=== PATIENT | female | born 1970 | race Caucasian/White ===

== ENCOUNTER 2024-12-21 09:43 | Inpatient (IN) | payer MEDICAID ==
[~2024-12-21] VITALS: Ht 162.6 cm; Wt 170.0 kg
--- NOTE | 2024-12-21 10:04 | ECG ---
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
[2024-12-21 10:21] LABS: Hematocrit 42.4 % (36.0-46.0); Hemoglobin 14.5 g/dL (12.2-16.2); Mean Corpuscular Hemoglobin 33.6 pg (28.0-32.0); Mean Corpuscular Volume 98.6 fL (80.0-100.0); Nucleated Red Blood Cells % 0.2 %
--- NOTE | 2024-12-21 10:23 | DVH ---
CLINICAL HISTORY: CHEST PAIN TECHNIQUE: 2 view of the chest was obtained. WID: COMPARISON: XR CHEST 2 VIEW on DOS: 06/17/24 FINDINGS: Lungs: clear Cardiomediastinal silhouette: normal in size Bones: No acute osseous abnormality. Imaged Upper Abdomen: unremarkable. IMPRESSION: NO ACUTE CARDIOPULMONARY PROCESS.
[2024-12-21 10:31] LABS: Anion Gap 6 (5-15); Carbon Dioxide 30 mmol/L (20-31); Chloride 106 mmol/L (98-107); Potassium 4.1 mmol/L (3.5-5.1); Sodium 142 mmol/L (136-145)
[2024-12-21 10:32] LABS: Calcium 8.9 mg/dL (8.7-10.4)
[2024-12-21 10:37] LABS: BUN/Creatinine Ratio 13.2 (10.0-20.0); Blood Urea Nitrogen 9 mg/dL (9-23); Glucose 93 mg/dL (74-106)
--- NOTE | 2024-12-21 10:40 | ED.PDOC ---
HPI Comments This is a 54 year-old female who presents to the ED with a chief complaint of L sided chest pain S/P fall X5 days ago. Patient states she was at home when she fell backwards and hit her back/ L flank. Patient reports the pain radiates to the L side of her chest. Patient states chest pain is constant, associated with a "stabbing" sensation, and exacerbated with deep breaths or movement. Patient additionally states she uses MJ to help with the pain. Patient has no further c omplaints at this time and otherwise denies further associated symptoms of palpitations, dizziness, weakness, headache, SOB, or fever. Chief Complaint: Chest Pain Time Seen by MD: 10:14 Primary Care Provider: PAM Hamilton Notes: Medications, Allergies Allergies: Coded Allergies: NO KNOWN ALLERGIES (Unverified , 11/21/14) Information Source: Patient Mode of Arrival: Ambulatory Severity: Moderate Timing: Days Duration: Since onset Prehospital treatment: None Location: Chest (L) Radiation: No Radiation Quality: Stabbing Onset: At Rest, With Light Exertion, With Heavy Exertion Associated Signs and Symptoms: Other (Chest Pain ) Past Medical History PAST MEDICAL HISTORY: HTN Surgical History: Appendectomy CERTIFIED HISTOLOGIC TECHNICIAN History: No Pertinent CERTIFIED HISTOLOGIC TECHNICIAN History Family History Family History: Unknown Social History Smoker: Cigarettes Alcohol: Occasionally Drugs: Marijuana Lives In: Home Constitutional: denies: chills, diaphoresis, fatigue, fever, malaise, sweats, weakness, others EENTM: denies: blurred vision, double vision, ear bleeding, ear discharge, ear drainage, ear pain, ear ringing, eye pain, eye redness, hearing loss, mouth pain, mouth swelling, nasal discharge, nose bleeding, nose congestion, nose pain, photophobia, tearing, throat pain, throat swelling, voice changes, others Respiratory: denies: cough, hemoptysis, orthopnea, SOB at rest, shortness of breath, SOB with excertion, stridor, wheezing, others Cardiovascular: reports: chest pain; denies: dizzy spells, diaphoresis, Dyspnea on exertion, edema, irregular heart beat, left arm pain, lightheadedness, palpitations, PND, syncope, others Gastrointestinal: denies: abdomen distended, abdominal pain, blood streaked bowels, constipated, diarrhea, dysphagia, difficulty swallowing, hematemesis, melena, nausea, poor appetite, poor fluid intake, rectal bleeding, rectal pain, vomiting, others Genitourinary: denies: abnormal vagina bleeding, burning, dyspareunia, dysuria, flank pain, frequency, hematuria, incontinence, pain, , vagina discharge, urgency, others Neurological: denies: dizziness, fainting, headache, left sided numbness, left sided weakness, numbness, paresthesia, pre-existing deficit, right sided numbness, right sided weakness, seizure, speech problems, tingling, tremors, weakness, others Musculoskeletal: denies: back pain, gout, joint pain, joint swelling, muscle pain, muscle stiffness, neck pain, others Integumetry: denies: bruises, change in color, change in hair/nails, dryness, laceration, lesions, lumps, rash, wounds, others Allergic/Immunocompromised: denies: Difficulty Healing, Frequent Infections, Hives, Itching, others Hematologic/Lymphatic: denies: anemia, blood clots, easy bleeding, easy bruising, swollen glands, others Endocrine: denies: excessive hunger, excessive sweating, excessive thirst, excessive urination, flushing, intolerance to cold, intolerance to heat, unexplained weight gain, unexplained weight loss, others Psychiatric: denies: anxiety, bipolar disorder, depression, hopeless, panic disorder, schizophrenia, sleepless, suicidal, others All Other Systems: Reviewed and Negative Physical Exam General Appearance: Moderate Distress HEENT: Normal ENT Inspection, Pharynx Normal, TMs Normal Neck: Full Range of Motion, Non-Tender, Normal, Normal Inspection Respiratory: Chest Non-Tender, Lungs Clear, No Accessory Muscle Use, No Respiratory Distress, Normal Breath Sounds Cardiovascular: No Edema, No JVD, No Murmur, No Gallop, Normal Peripheral Pulses, Regular Rate/Rhythm Breast Exam: Deferred Gastrointestinal: No Organomegaly, Non Tender, No Pulsatile Mass, Normal Bowel Sounds, Soft Genitalia: Deferred Pelvic: Deferred Rectal: Deferred Extremities: No calf tenderness, Normal capillary refill, Normal inspection, Normal range of motion, Non-tender, No pedal edema Musculoskeletal : Apperance: Normal Neurologic: Alert, manager in training II-XII nml as Tested, No Motor Deficits, Normal Affect, Normal Mood, No Sensory Deficits Cerebellar Function: Normal Reflexes: Normal Skin: Dry, Normal Color, Warm Peripheral Pulses: 3+ Radial (R), 3+ Radial (L) Lymphatic: No Adenopathy EKG EKG : Pulse Rate (adult): 63 [place]: Normal Cardiac Rhythm: NSR Block: None Hypertrophy: None ST: Normal Was a procedure done? Was a procedure done?: No CP Differential Dx Differential Diagnosis: A-fib, A-Flutter, Angina, Anxiety / Panic Attack, At rial Dysrhythmia, Electrolyte Disorder, VT, Sinus Tachycardia Differential Diagnosis: HTN Essential X-Ray, Labs, Meds, VS Vital Signs Date Time Temp Pulse Resp B/P (MAP) Pulse Ox O2 Delivery O2 Flow Rate FiO2 12/21/24 10:42 63 12/21/24 10:03 63 12/21/24 09:48 98.0 79 18 166/98 97 98.0 Lab Test 12/21/24 10:07 Range/Units White Blood Count 5.2 4.4-10.8 10^3/uL Red Blood Count 4.30 4.0-5.20 10^6/uL Hemoglobin 14.5 12.2-16.2 g/dL Hematocrit 42.4 36.0-46.0 % Mean Corpuscular Volume 98.6 80.0-100.0 fL Mean Corpuscular Hemoglobin 33.6 H 28.0-32.0 pg Mean Corpuscular Hemoglobin Concent 34.1 32.0-36.0 g/dL Red Cell Distribution Width 13.6 11.8-14.3 % Platelet Count 235 140-450 10^3/uL Mean Platelet Volume 7.9 6.9-10.8 fL Neutrophils (%) (Auto) 63.7 37.0-80.0 % Lymphocytes (%) (Auto) 28.8 10.0-50.0 % Monocytes (%) (Auto) 5.1 0.0-12.0 % Eosinophils (%) (Auto) 1.7 0.0-7.0 % Basophils (%) (Auto) 0.7 0.0-2.0 % Neutrophils # (Auto) 3.3 1.6-8.6 10 ^3/uL Lymphocytes # (Auto) 1.5 0.4-5.4 10 ^3/uL Monocytes # (Auto) 0.3 0-1.3 10 ^3/uL Eosinophils # (Auto) 0.1 0-0.8 10 ^3/uL Basophils # (Auto) 0 0-0.2 10 ^3/uL Nucleated Red Blood Cells 0.2 % Sodium Level 142 136-145 mmol/L Potassium Level 4.1 3.5-5.1 mmol/L Chloride Level 106 98-107 mmol/L Carbon Dioxide Level 30 20-31 mmol/L Anion Gap 6 5-15 Blood Urea Nitrogen 9 9-23 mg/dL Creatinine 0.68 0.550-1.02 mg/dL Glomerular Filtration Rate Calc 103 >90 mL/min BUN/Creatinine Ratio 13.2 10.0-20.0 Serum Glucose 93 74-106 mg/dL Calcium Level 8.9 8.7-10.4 mg/dL Troponin I High Sensitivity 3 L </=34 ng/L [place] [id number] Ph: [phone] DIAGNOSTIC IMAGING Diagnostic Imaging Report : [id number] Signed PATIENT: KASANDRA BRYANT ACCT: [id number] UNIT: [id number] : 1970 LOC: ER ROOM / BED: / AGE / SEX: 54 / F ADM STATUS: REG ER SERVICE [id number] ORDERING PHYSICIAN: ELIECER SPENCER MD PROCEDURE(s): CXR2 - CHEST TWO VIEWS ROUTINE REASON: CHEST PAIN ORDER NUMBER(s): [id number], ACCESSION NUMBER(s): [id number] CLINICAL HISTORY: CHEST PAIN TECHNIQUE: 2 view of the chest was obtained. WID: COMPARISON: XR CHEST 2 VIEW on DOS: 06/17/24 FINDINGS: Lungs: clear Cardiomediastinal silhouette: normal in size Bones: No acute osseous abnormality. Imaged Upper Abdomen: unremarkable. IMPRESSION: NO ACUTE CARDIOPULMONARY PROCESS. Patient alert. Came in because of chest pain. Vitals stable. Answering questions. Chest x-ray reviewed does not show any acute changes. EKG reviewed does not show any acute changes. Continues to have chest pain. Was given aspirin. Was given nitro. Explained to the patient. Continue monitoring. Images Reviewed?: Images reviewed and evaluated by me Time of 1ST Reevaluation: 11:25 Reevaluation 1ST: Unchanged Patient Education/Counseling: Diagnosis, Treatment Family Education/Counseling: No Family Present SEPSIS Sepsis Screen Date sepsis recognized/suspect: Dec 21, 2024 Time Sepsis recognized/suspect: 0950 Recent Procedure: No On Antibiotic Therapy: No Respiratory Rate >20: No Heart Rate >90: No Temp<36 C (96.8 F) or >38.3 C: No SBP <90 or MAP <65 mmHG: No New Acute Mental Status Change: No Is the patient on CPAP, BIPAP,: No Physician Orders Troponin-I Hs (12/21/24 10:47) Troponin-I Hs (12/21/24 12:47) Electrocardigram (12/21/24 10:47) Electrocardigram (12/21/24 12:47) Chest Two Views Routine (12/21/24 09:47) Vital Signs Date Time Temp Pulse Resp B/P (MAP) Pulse Ox O2 Delivery O2 Flow Rate FiO2 12/21/24 10:42 63 12/21/24 10:03 63 12/21/24 09:48 98.0 79 18 166/98 97 98.0 Laboratory Tests Test 12/21/24 10:07 White Blood Count 5.2 10^3/uL (4.4-10.8) Departure 1 Departure Time of Disposition: 11:26 Impression: Primary Impression: Chest pain of unknown etiology Disposition: ADMITTED INPATIENT Admit to: Med Surg Condition: Guarded Critical Care Note Critical Care Time?: No Stability Stability form required: No Heart Score Heart Score: Heart Score Response (Comments) Value History Moderate Suspicious 1 EKG Normal 0 Age 45-64 1 Risk Factors 1 or 2 risk factors 1 Troponin Normal limit 0 Total 3 I personally scribed for ELIECER SPENCER MD ([email or web address]) on 12/21/24 at 10:40. Electronically submitted by Kay Cid ([email or web address]). I personally scribed for ELIECER SPENCER MD ([email or web address]) on 12/21/24 at 10:42. Electronically submitted by Kay Cid ([email or web address]). I personally scribed for ELIECER SPENCER MD ([email or web address]) on 12/21/24 at 10:42. Electronically submitted by Kay Cid ([email or web address]). ELIECER SPENCER MD Dec 21, 2024 10:40
[2024-12-21] MEDS: NITROGLYCERIN 0.4 MG SL TAB SL ONE (11:34)
[2024-12-21] MEDS ORDERED: NITROGLYCERIN 0.4 MG SL TAB SL PRN (12:30)
[2024-12-21 13:54] VITALS: PULSE 88; RESP 18; O2SAT 97
[2024-12-21] MEDS ORDERED: hydrALAZINE HCL 20 MG/ML VL IV PRN (14:45)
[2024-12-21] MEDS ORDERED: ONDANSETRON HCL 4 MG/2 ML VIAL IV PRN (14:45)
--- NOTE | 2024-12-21 14:46 | DVHHP2 ---
History of Present Illness Reason for Visit: Chest pain History of Present Illness 54-year-old female presents for evaluation of chest pain. Patient reports a one day history of left-sided sharp chest pain with shortness for breath with deep inspiration. No cough or fever. No other acute complaints. Past Medical History Hypertension Past Surgical History Appendectomy Family History Noncontributory Smoke: <1 pack per day ALCOHOL: occassional Drugs: Marijuana Lives: with Family Review of Systems Review of Systems Review of systems are currently negative otherwise addressed in HPI. Allergies: Coded Allergies: NO KNOWN ALLERGIES (Unverified , 11/21/14) Medications Current Medications Medications Dose Ordered Sig/Jayant Route Start Time Stop Time Status Last Admin Dose Admin Nitroglycerin 0.4 mg Q5MINP PRN SL 12/21/24 12:30 Morphine Sulfate 2 mg Q30M PRN IV 12/21/24 12:30 Exam Vital Signs Vital Signs Date Time Temp Pulse Resp B/P (MAP) Pulse Ox O2 Delivery O2 Flow Rate FiO2 12/21/24 13:57 97 Room Air* 0 21 12/21/24 13:54 88 18 12/21/24 11:34 188/95 12/21/24 09:48 98.0 98.0 Exam Gen: 54-year-old female in mild distress Skin: Warm, dry, normal color and texture, no rash. HEENT: Normocephalic atraumatic, mucous membranes moist and pink. Neck: Cervical and supraclavicular nodes normal without enlargement, trachea is midline, thyroid gland is normal without masses. Pulmonary: Clear to auscultation and percussion bilaterally. Cardiac: Regular rate and rhythm. No murmur Abdomen: Soft, nontender, nondistended, bowel sounds present all 4 quadrants, no guarding, no rigidity, no organomegaly. Extremities: No cyanosis, clubbing, no edema Neuro: Cranial nerves II through XII grossly intact, normal affect and speech, no focal motor deficits. Labs/Xrays ORDERING PHYSICIAN: ELIECER SPENCER MD PROCEDURE(s): CXR2 - CHEST TWO VIEWS ROUTINE REASON: CHEST PAIN ORDER NUMBER(s): [id number], ACCESSION NUMBER(s): [id number] CLINICAL HISTORY: CHEST PAIN TECHNIQUE: 2 view of the chest was obtained. WID: COMPARISON: XR CHEST 2 VIEW on DOS: 06/17/24 FINDINGS: Lungs: clear Cardiomediastinal silhouette: normal in size Bones: No acute osseous abnormality. Imaged Upper Abdomen: unremarkable. IMPRESSION: NO ACUTE CARDIOPULMONARY PROCESS. Labs Test 12/21/24 11:23 12/21/24 10:07 Range/Units Troponin I High Sensitivity < 3 L </=34 ng/L White Blood Count 5.2 4.4-10.8 10^3/uL Red Blood Count 4.30 4.0-5.20 10^6/uL Hemoglobin 14.5 12.2-16.2 g/dL Hematocrit 42.4 36.0-46.0 % Mean Corpuscular Volume 98.6 80.0-100.0 fL Mean Corpuscular Hemoglobin 33.6 H 28.0-32.0 pg Mean Corpuscular Hemoglobin Concent 34.1 32.0-36.0 g/dL Red Cell Distribution Width 13.6 11.8-14.3 % Platelet Count 235 140-450 10^3/uL Mean Platelet Volume 7.9 6.9-10.8 fL Neutrophils (%) (Auto) 63.7 37.0-80.0 % Lymphocytes (%) (Auto) 28.8 10.0-50.0 % Monocytes (%) (Auto) 5.1 0.0-12.0 % Eosinophils (%) (Auto) 1.7 0.0-7.0 % Basophils (%) (Auto) 0.7 0.0-2.0 % Neutrophils # (Auto) 3.3 1.6-8.6 10 ^3/uL Lymphocytes # (Auto) 1.5 0.4-5.4 10 ^3/uL Monocytes # (Auto) 0.3 0-1.3 10 ^3/uL Eosinophils # (Auto) 0.1 0-0.8 10 ^3/uL Basophils # (Auto) 0 0-0.2 10 ^3/uL Nucleated Red Blood Cells 0.2 % Sodium Level 142 136-145 mmol/L Potassium Level 4.1 3.5-5.1 mmol/L Chloride Level 106 98-107 mmol/L Carbon Dioxide Level 30 20-31 mmol/L Anion Gap 6 5-15 Blood Urea Nitrogen 9 9-23 mg/dL Creatinine 0.68 0.550-1.02 mg/dL Glomerular Filtration Rate Calc 103 >90 mL/min BUN/Creatinine Ratio 13.2 10.0-20.0 Serum Glucose 93 74-106 mg/dL Calcium Level 8.9 8.7-10.4 mg/dL SEPSIS Sepsis Screen Date sepsis recognized/suspect: Dec 21, 2024 Time Sepsis recognized/suspect: 1356 Recent Procedure: No On Antibiotic Therapy: No Respiratory Rate >20: No Heart Rate >90: No Temp<36 C (96.8 F) or >38.3 C: No SBP <90 or MAP <65 mmHG: No New Acute Mental Status Change: No Is the patient on CPAP, BIPAP,: No Physician Orders Electrocardigram (12/21/24 10:47) Electrocardigram (12/21/24 12:47) Chest Two Views Routine (12/21/24 09:47) Admit (12/21/24 12:25) Nitroglycerin Sublingual (Ntrostat Subli (12/21/24 12:30) Morphine Sulfate Injection (12/21/24 12:30) Stat Ekg For Chest Pain (12/21/24 12:25) Notify Md Of Changes From Base (12/21/24 12:25) Braker Passenger Train For 24 Hours (12/21/24 12:25) Emergency Dysrhythmia Protocol (12/21/24 12:25) Rhythm Strips Once Every Shift (12/21/24 12:25) Oxygen By Nasal Cannula (12/21/24 12:25) Vital Signs Date Time Temp Pulse Resp B/P (MAP) Pulse Ox O2 Delivery O2 Flow Rate FiO2 12/21/24 13:57 97 Room Air* 0 21 12/21/24 13:54 88 18 97 Room Air* 0 21 12/21/24 11:34 188/95 12/21/24 11:30 77 12/21/24 10:42 63 12/21/24 10:03 63 12/21/24 09:48 98.0 79 18 166/98 97 98.0 Laboratory Tests Test 12/21/24 10:07 White Blood Count 5.2 10^3/uL (4.4-10.8) Medications Medications Dose Ordered Sig/Jayant Route Start Time Stop Time Status Last Admin Dose Admin Aspirin 325 mg ONCE ONCE PO 12/21/24 11:30 12/21/24 11:31 DC 12/21/24 11:39 325 MG Nitroglycerin 0.4 mg ONCE ONCE SL 12/21/24 11:30 12/21/24 11:31 DC 12/21/24 11:34 0.4 MG Assessment/Plan Assessment/Plan Assessment Chest pain rule out ACS Accelerated hypertension Plan Admit the patient to telemetry to the hospitalist ACS protocol Echocardiogram pending Resume home medications Continue treatment per orders. Plan discussed with: Patient My Orders Orders - RON HENRIQUEZ Procedure Category Date Status Time Admit ADMIT 12/21/24 Transmitted 12:25 Nitroglycerin PHA 12/21/24 In Process Sublingual (Ntrostat 12:30 Morphine Sulfate PHA 12/21/24 In Process Injection 12:30 Stat Ekg For Chest FILEMON 12/21/24 In Process Pain 12:25 Notify Md Of Changes FILEMON 12/21/24 In Process From Base 12:25 Braker Passenger Train For FILEMON 12/21/24 In Process 24 Hours 12:25 Emergency Dysrhythmia FLIEMON 12/21/24 In Process Protocol 12:25 Rhythm Strips Once FILEMON 12/21/24 In Process Every Shift 12:25 Oxygen By Nasal RT 12/21/24 Transmitted Cannula 12:25 Date of Service: Dec 21, 2024 Billing Provider: RON HENRIQUEZ Common Visit Codes: [id number] INP/OBS CARE (HIGH) RON HENRIQUEZ Dec 21, 2024 14:46
[2024-12-21 14:57] LABS: Triglycerides 83 mg/dL (< 150)
[2024-12-21 14:59] LABS: Cholesterol 175 mg/dL (< 200)
[2024-12-21 15:02] LABS: HDL Cholesterol 79 mg/dL (40-59)
[2024-12-21 16:26] VITALS: BP 151/99; PULSE 67; RESP 20; TEMP 97.6; O2SAT 95
[2024-12-21 16:40] VITALS: BP 151/99; PULSE 67; RESP 20; TEMP 97.6; O2SAT 95
[2024-12-21] MEDS: MORPHINE SULFATE INJ 2 MG/ml SYRG IV ONE (19:03)
--- NOTE | 2024-12-21 19:18 | ECG ---
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
[2024-12-21] MEDS: ACETAMINOPHEN 325 MG TAB PO PRN (20:30)
[2024-12-21 21:00] VITALS: BP 140/96; PULSE 76; RESP 18; TEMP 98.2; O2SAT 95
[2024-12-21] MEDS: ATORVASTATIN 20 MG TAB PO SCH (21:18)
[2024-12-21] MEDS: HYDROcodone-ACET 10/325MG TAB PO PRN (21:18)
[2024-12-21] MEDS: MORPHINE SULFATE INJ 2 MG/ml SYRG IV PRN (23:11)
[2024-12-22] VITALS (11 sets, daily range): BP systolic 124–144; BP diastolic 79–92; PULSE 64–70; RESP 16–20; TEMP 97.9–98.9; O2SAT 91–98
[2024-12-22 06:31] LABS: Anion Gap 6 (5-15); Carbon Dioxide 28 mmol/L (20-31); Potassium 3.8 mmol/L (3.5-5.1); Sodium 143 mmol/L (136-145)
[2024-12-22 06:37] LABS: BUN/Creatinine Ratio 19.0 (10.0-20.0); Blood Urea Nitrogen 11 mg/dL (9-23); Glucose 95 mg/dL (74-106)
[2024-12-22 06:46] LABS: Calcium 8.6 mg/dL (8.7-10.4); Chloride 109 mmol/L (98-107)
[2024-12-22 09:23] LABS: Hematocrit 38.1 % (36.0-46.0); Hemoglobin 12.9 g/dL (12.2-16.2); Mean Corpuscular Hemoglobin 33.6 pg (28.0-32.0); Mean Corpuscular Volume 98.8 fL (80.0-100.0); Nucleated Red Blood Cells % 0.1 %
[2024-12-22] MEDS: LOSARTAN POTASSIUM 25 MG TAB PO SCH (09:27)
[2024-12-22 09:36] LABS: Alanine Aminotransferase 13 U/L (7-40); Albumin 3.8 g/dL (3.2-4.8); Alkaline Phosphatase 63 U/L (46-116); Anion Gap 8 (5-15); BUN/Creatinine Ratio 17.7 (10.0-20.0); Bilirubin, Total 0.6 mg/dL (0.2-1.0); Blood Urea Nitrogen 11 mg/dL (9-23); Carbon Dioxide 26 mmol/L (20-31); Glucose 94 mg/dL (74-106); Potassium 3.9 mmol/L (3.5-5.1); Sodium 144 mmol/L (136-145); Total Protein 6.0 g/dL (5.7-8.2)
[2024-12-22 09:41] LABS: Calcium 8.5 mg/dL (8.7-10.4); Chloride 110 mmol/L (98-107)
[2024-12-22 10:06] LABS: Magnesium 2.0 mg/dL (1.6-2.6)
[2024-12-22 10:18] LABS: Lipase 35.0 U/L (12-53)
--- NOTE | 2024-12-22 13:00 | DVH ---
CLINICAL INDICATION: trauma, temderness TECHNIQUE: 7 radiographic views of the chest x-ray and bilateral ribs were obtained. Comparison: None FINDINGS/IMPRESSION: There is no pneumothorax seen on the right or left. No pleural effusions. Minimally displaced right 7th and 8th ribs.
[2024-12-22] MEDS: PANTOPRAZOLE 40 MG TAB PO ONE (13:05)
[2024-12-22] MEDS: NICOTINE 14 MG/24HR TOPICAL PATCH TD ONE (13:08)
--- NOTE | 2024-12-22 13:25 | DVHSR ---
APPROVED REPORT EXAM: LIMITED Two-dimensional and M-mode echocardiogram with Doppler and color Doppler. Blood Pressure: 129/79 mmHg INDICATION Chest Pain RISK FACTORS Height: 5' 4", Weight: 374 DIMENSIONS LVDd4.8 (3.8-5.7cm)LA (2D)4.0 (1.9-4.0cm)Aortic Root3.2 (2.0-3.7cm) LVDs3.3 (2.5-4.0cm)LA (MM) (1.9-4.0cm)Aortic Cusp Exc1.8 (1.5-2.0cm) EF (%) 60.0 (55-70%)Rt. Atrium4.0 (1.9-4.0cm)Asc. Aorta cm IVSd1.1 (0.7-1.1cm)RV (D) (1.8-2.4cm) PWd1.1 (0.7-1.1cm) Mitral Valve MitralMitral Stenosis E wave1.10m/sMV Mean GR.mmHg A wave0.90m/sMV Peak GR.mmHg E/A ratio1.22D MVAcm2 Aortic Valve Aortic ValveAortic Stenosis V11.10m/Fernie Mean GR.6mmHg V21.80m/Fernie Peak GR.13mmHg LVOT Diameter2.2 (1.8-2.4cm)Doppler AVA2.32cm2 Other Information Quality : Technically LimitedRhythm : Technically limited study due to patient states ribs hurt when touched. Conclusion lvef 60% normal rv function normal atria no severe valve abnormaliteis noted
[2024-12-22] MEDS ORDERED: IPRATROPIUM BROM 0.5 MG/2.5ML INH SOL NEB SCH (14:00)
[2024-12-22] MEDS: LIDOCAINE 5% TOPICAL PATCH TOP ONE (14:23)
--- NOTE | 2024-12-22 14:37 | DVHPNRES ---
Progress Note Date Seen: Dec 22, 2024 Resident Creating Document: VON RODRIGUEZ RESIDENT Medical Necessity Reason Pt with a Central, PICC or Fol: No Subjective Review of Systems This is a 54-year-old female with past medical history of hypertension, COPD, asthma, diverticulitis, presented to the ER with chief complain of chest pain. Patient reportedly hit the right side of her chest on a kitchen counter 3 weeks back, the pain migrated to the left side of her chest, urging her visit to the ER. The pain is described as stabbing, 10/10, increases with inspiration. She denies palpitations, shortness of breath. She complains of associated headache. She also complained of increased phlegm, take yellow-green in color. No changes in cough, denies fever, chills, nausea, vomiting, diarrhea, constipation. PMHx: Hypertension, COPD, asthma, diverticulitis PSHx: Appendectomy Social history: <1 pack per day for 30 years, occasional alcohol use, occasional marijuana use (last use Monday). She lives in house alone, full code, next to kin is son Home medication: Amlodipine, ibuprofen, fluticasone, varenicline Allergic history: No known allergies ROS: Constitutional: Denies weight loss, fever and chills. HEENT: Denies changes in vision and hearing. Respiratory: Denies shortness of breath and cough Cardiovascular: Chest pain. Denies palpitation, shortness of breaths GI: Denies abdominal pain, nausea, vomiting and diarrhea. : Denies dysuria and urinary frequency. Musculoskeletal: Denies myalgias and joint pain Skin: Denies rash and pruritus. Neurological: Denies dizziness, headache, vision or hearing problems 12/22/2024: Patient was examined at bedside today. No new complaints. Objective vital signs Vital Sign Date Time Temp Pulse Resp B/P (MAP) Pulse Ox O2 Delivery O2 Flow Rate FiO2 12/22/24 13:14 98.3 69 20 124/80 (95) 93 98.3 12/22/24 11:46 0.0 21 12/22/24 08:00 Room Air* medications Current Medications Medications Dose Ordered Sig/Jayant Route Start Time Stop Time Status Last Admin Dose Admin Nitroglycerin 0.4 mg Q5MINP PRN SL 12/21/24 12:30 Morphine Sulfate 2 mg Q30M PRN IV 12/21/24 12:30 Losartan Potassium 25 mg DAILY PO 12/22/24 10:00 12/22/24 09:27 25 MG Aspirin 81 mg DAILY PO 12/22/24 10:00 12/22/24 09:27 81 MG Atorvastatin Calcium 10 mg HS PO 12/21/24 22:00 12/21/24 21:18 10 MG Ondansetron HCl 4 mg Q4HP PRN IV 12/21/24 14:45 Acetaminophen 650 mg Q6HP PRN PO 12/21/24 14:45 12/22/24 05:56 650 MG Hydralazine HCl 10 mg Q6HP PRN IV 12/21/24 14:45 Acetaminophen/ Hydrocodone Bitart 1 tab Q6HP PRN PO 12/21/24 20:45 12/22/24 11:35 1 TAB Morphine Sulfate 2 mg Q4HPRN PRN IV 12/21/24 20:45 12/21/24 23:11 2 MG Albuterol 1.25 mg Q4HPRN PRN NEB 12/22/24 11:45 Nicotine 1 patch DAILY TD 12/23/24 10:00 Pantoprazole Sodium 40 mg DAILY@0600 PO 12/23/24 06:00 Ipratropium [place] 0.5 mg Q4HPRN PRN NEB 12/22/24 18:00 Lidocaine 1 patch DAILY TOP 12/23/24 10:00 Examination General: Patient alert and oriented in person, place and time. Patient following commands. HEENT: Normocephalic, atraumatic, moist mucous membranes Respiratory/pulmonary: Clear lungs bilaterally, vesicular murmurs present in almost all lung julian, no associated crackles or wheezes. Cardiovascular: Tenderness in the left side of the chest, expiratory wheeze in the left lower lung julian Abdomen: Abdomen nondistended, there is no pain to palpation in any of the abdominal quadrants, no palpable masses. Extremities: There is no peripheral edema present at the lower extremities. Peripheral Pulses: 3+ Radial (R). 3+ Radial (L). 3+ Dorsalis pedis (R). 3+ Dorsalis pedis(L) Skin: No rashes or pruritus, there is no sacral edema present at this time. Neurological: Intact cranial nerves with no focal neurologic deficits laboratory and microbiology Laboratory Tests 12/22/24 05:20 Test 10/26/25 05:20 Range/Units Serum Glucose 94 74-106 mg/dL Problem List/Assessment/Plan Problem List/Assessment/Plan Chest pain, rule out ACS Musculoskeletal chest pain, likely Displaced right 7th, 8th rib Troponins WNL, EKG show sinus rhythm Echocardiogram shows LVEF 60%, normal RV function Continuous monitoring on telemetry for life-threatening arrhythmias Supportive management with pain medications, lidocaine patch and hot pack Hypertensive urgency, resolving Continue losartan COPD, without exacerbation Med neb treatment provided Ordered COVID, influenza serologies Nicotine dependence Counseled on bedside for more than has been units for nicotine cessation Offered nicotine patch Morbid obesity Counseled on lifestyle changes DIET: Cardiac DVT PROPHYLAXIS: Ambulating, SCD GI PROPHYLAXIS: Protonix CODE STATUS: Goals of care discussed with patient at bedside for more than 15 minutes. Full code DISPOSITION: Telemetry Patient's status and plan discussed with the patient. Case discussed with Dr. Wall Plan discussed with: Patient My Orders My Orders Orders - VON RODRIGUEZ Procedure Category Date Status Time Drug Screen LAB 12/22/24 Logged 08:34 Test, Urine LAB 12/22/24 Logged 08:34 Urinalysis LAB 12/22/24 Logged 08:34 Rapid Influenza A&B LAB 12/22/24 Logged 11:32 Covid19 Antigen [place] LAB 12/22/24 Logged Albuterol Medneb PHA 12/22/24 In Process (Ventolin Medneb) 11:45 Nicotine 14mg/24hr PHA 12/23/24 In Process (Nicoderm 14mg/24hr) 10:00 Pantoprazole Tablet PHA 12/23/24 In Process (Protonix Tablet) 06:00 Ipratropium Medneb PHA 12/22/24 In Process (Atrovent Medneb) 18:00 Lidocaine 5% Topical PHA 12/23/24 In Process Patch (Lidoderm 5% 10:00 Hot Pack ED NURSING 12/22/24 Transmitted Date of Service: Dec 22, 2024 Billing Provider: AGUILA WALL MD Common Visit Codes: [id number] INP/OBS CARE(HIGH) VON RODRIGUEZ RESIDENT Dec 22, 2024 14:37
[2024-12-22] MEDS: MORPHINE SULFATE INJ 2 MG/ml SYRG IV PRN (16:05)
[2024-12-23] VITALS (8 sets, daily range): BP systolic 135–142; BP diastolic 76–91; PULSE 57–81; RESP 15–20; TEMP 36.7; O2SAT 91–97
[2024-12-23 05:11] LABS: Opiate Scree,Urine Pos (NEGATIVE)
[2024-12-23 05:29] LABS: Urine Protein, UAD Negative (Negative)
[2024-12-23 05:31] LABS: Amphetamine Screen, Urine Neg (NEGATIVE); Barbiturate Scree,Urine Neg (NEGATIVE); Benzodiazephine Screen, Urine Neg (NEGATIVE); Cannabinoid Screen, Urine Neg (NEGATIVE); Phencyclidine Screen, Urine Neg (NEGATIVE)
[2024-12-23] MEDS: PANTOPRAZOLE 40 MG TAB PO SCH (05:31)
[2024-12-23 05:34] LABS: Cocaine Screen, Urine Neg (NEGATIVE)
[2024-12-23 06:19] LABS: COVID19 ANTIGEN SOFIA FIA NEGATIVE (NEGATIVE)
[2024-12-23 06:26] LABS: Hematocrit 38.8 % (36.0-46.0); Hemoglobin 13.2 g/dL (12.2-16.2); Mean Corpuscular Hemoglobin 33.5 pg (28.0-32.0); Mean Corpuscular Volume 98.9 fL (80.0-100.0); Nucleated Red Blood Cells % 0.1 %
[2024-12-23 06:42] LABS: Calcium 9.2 mg/dL (8.7-10.4); Chloride 107 mmol/L (98-107); Potassium 4.1 mmol/L (3.5-5.1); Sodium 143 mmol/L (136-145)
[2024-12-23 06:43] LABS: Anion Gap 6 (5-15); Carbon Dioxide 30 mmol/L (20-31)
[2024-12-23 06:48] LABS: BUN/Creatinine Ratio 19.7 (10.0-20.0); Blood Urea Nitrogen 12 mg/dL (9-23); Glucose 90 mg/dL (74-106)
[2024-12-23] MEDS: ALBUTEROL SULF 2.5 MG/0.5ML(0.5%) NEB SOLN NEB PRN (07:35)
[2024-12-23] MEDS: IPRATROPIUM BROM 0.5 MG/2.5ML INH SOL NEB PRN (07:35)
[2024-12-23] MEDS: BACLOFEN 10 MG TAB PO ONE (09:57)
[2024-12-23] MEDS: LIDOCAINE 5% TOPICAL PATCH TOP SCH (09:58)
[2024-12-23] MEDS: NICOTINE 14 MG/24HR TOPICAL PATCH TD SCH (09:58)
[2024-12-23] MEDS ORDERED: CEPH500C PO (12:53)
--- NOTE | 2024-12-23 13:38 | DVHDSRES ---
Discharge Summary Date of Admission Resident Creating Document: VON RODRIGUEZ RESIDENT Dec 21, 2024 at 12:25 Date of Discharge: Dec 23, 2024 Labs/Diagnostic Data: Laboratory Results Test 12/23/24 04:36 12/23/24 03:45 12/22/24 05:20 12/21/24 15:03 White Blood Count 4.5 10^3/uL (4.4-10.8) Red Blood Count 3.92 10^6/uL (4.0-5.20) Hemoglobin 13.2 g/dL (12.2-16.2) Hematocrit 38.8 % (36.0-46.0) Mean Corpuscular Volume 98.9 fL (80.0-100.0) Mean Corpuscular Hemoglobin 33.5 pg (28.0-32.0) Mean Corpuscular Hemoglobin Concent 33.9 g/dL (32.0-36.0) Red Cell Distribution Width 13.9 % (11.8-14.3) Platelet Count 200 10^3/uL (140-450) Mean Platelet Volume 8.3 fL (6.9-10.8) Neutrophils (%) (Auto) 51.0 % (37.0-80.0) Lymphocytes (%) (Auto) 39.3 % (10.0-50.0) Monocytes (%) (Auto) 6.6 % (0.0-12.0) Eosinophils (%) (Auto) 2.5 % (0.0-7.0) Basophils (%) (Auto) 0.6 % (0.0-2.0) Neutrophils # (Auto) 2.3 10 ^3/uL (1.6-8.6) Lymphocytes # (Auto) 1.8 10 ^3/uL (0.4-5.4) Monocytes # (Auto) 0.3 10 ^3/uL (0-1.3) Eosinophils # (Auto) 0.1 10 ^3/uL (0-0.8) Basophils # (Auto) 0 10 ^3/uL (0-0.2) Nucleated Red Blood Cells 0.1 % Sodium Level 143 mmol/L (136-145) Potassium Level 4.1 mmol/L (3.5-5.1) Chloride Level 107 mmol/L (98-107) Carbon Dioxide Level 30 mmol/L (20-31) Anion Gap 6 (5-15) Blood Urea Nitrogen 12 mg/dL (9-23) Creatinine 0.61 mg/dL (0.550-1.02) Glomerular Filtration Rate Calc 106 mL/min (>90) BUN/Creatinine Ratio 19.7 (10.0-20.0) Serum Glucose 90 mg/dL (74-106) Calcium Level 9.2 mg/dL (8.7-10.4) Urine Color Colorless (Yellow) Urine Clarity Turbid (Clear) Urine pH 5.5 (5.0-9.0) Urine Specific [place] 1.014 (1.001-1.035) Urine Protein Negative (Negative) Urine Ketones Negative (Negative) Urine Blood Negative /uL (Negative) Urine Nitrite Negative (Negative) Urine Bilirubin Negative (Negative) Urine Urobilinogen Normal mg/dL (Negative) Urine Leukocyte Esterase 1+ /uL (Negative) Urine RBC 2 /hpf (0 - 4) Urine Microscopic WBC 4 /HPF (0-5) Urine Squamous Epithelial Cells Mod /hpf (<5) Urine Bacteria Few /hpf (None Seen) Urine Glucose Normal mg/dL (Normal) Urine Test Negative (Negative) Urine Opiates Screen Pos (NEGATIVE) Urine Fentanyl Screen Neg (NEGATIVE) Urine Barbiturates Screen Neg (NEGATIVE) Urine Phencyclidine Screen Neg (NEGATIVE) Urine Amphetamines Screen Neg (NEGATIVE) Urine Benzodiazepines Screen Neg (NEGATIVE) Urine Cocaine Screen Neg (NEGATIVE) Urine Cannabinoids Screen Neg (NEGATIVE) Influenza Type A Antigen Negative (Negative) Influenza Type B Antigen Negative (Negative) SARS-CoV-2 Antigen (Rapid) Negative (NEGATIVE) Phosphorus Level 4.7 mg/dL (2.4-5.1) Magnesium Level 2.0 mg/dL (1.6-2.6) Total Bilirubin 0.6 mg/dL (0.2-1.0) Aspartate Amino Transferase (AST) 15 U/L (13-40) Alanine Aminotransferase (ALT) 13 U/L (7-40) Alkaline Phosphatase 63 U/L (46-116) C-Reactive Protein High Sensitivity 0.34 mg/dL (<1.0) Total Protein 6.0 g/dL (5.7-8.2) Albumin 3.8 g/dL (3.2-4.8) Lipase 35 U/L (12-53) Thyroid Stimulating Hormone (TSH) 4.84 uIU/mL (0.55-4.78) D-Dimer, Quantitative 0.22 mg/L FEU (0.0-0.49) Test 12/21/24 11:23 12/21/24 10:07 Troponin I High Sensitivity < 3 ng/L (</=34) Triglycerides Level 83 mg/dL (< 150) Cholesterol Level 175 mg/dL (< 200) LDL Cholesterol 78 mg/dL (< 100) HDL Cholesterol 79 mg/dL (40-59) Other Laboratory Tests 12/23/24 04:36 Brief Hx & Hospital Course: History on admission: This is a 54-year-old female with past medical history of hypertension, COPD, asthma, diverticulitis, presented to the ER with chief complain of chest pain. Patient reportedly hit the right side of her chest on a kitchen counter 3 weeks back, the pain migrated to the left side of her chest, urging her visit to the ER. The pain is described as stabbing, 10/10, increases with inspiration. She denies palpitations, shortness of breath. She complains of associated headache. She also complained of increased phlegm, take yellow-green in color. No changes in cough, denies fever, chills, nausea, vomiting, diarrhea, constipation. Brief hospital course: Patient was started monitoring on telemetry for life-threatening arrhythmias, troponins were within normal range an EKG revealed sinus rhythm. She also had hypertensive urgency. Patient was started on supportive management with pain medications, lidocaine patch and hot pack. Patient also received med neb treatment, nicotine patch. Patient's chest patient is improving on pain medications and muscle relaxants, and is stable for discharge. Conditions treated during stay: Musculoskeletal chest pain, likely Displaced right 7th, 8th rib Ruled out ACS Hypertensive urgency, resolving COPD, without exacerbation Morbid obesity Nicotine dependence Plan: Complete antibiotic course with Keflex for 5 days Please follow up in discharge clinic Please follow up in PCP in 1 week Please follow up in Endocrinilogist in outpatient clinic Operations or Procedures CLINICAL INDICATION: trauma, temderness TECHNIQUE: 7 radiographic views of the chest x-ray and bilateral ribs were obtained. Comparison: None FINDINGS/IMPRESSION: There is no pneumothorax seen on the right or left. No pleural effusions. Minimally displaced right 7th and 8th ribs. CLINICAL HISTORY: CHEST PAIN TECHNIQUE: 2 view of the chest was obtained. WID: COMPARISON: XR CHEST 2 VIEW on DOS: 06/17/24 FINDINGS: Lungs: clear Cardiomediastinal silhouette: normal in size Bones: No acute osseous abnormality. Imaged Upper Abdomen: unremarkable. IMPRESSION: NO ACUTE CARDIOPULMONARY PROCESS. APPROVED REPORT EXAM: LIMITED Two-dimensional and M-mode echocardiogram with Doppler and color Doppler. Blood Pressure: 129/79 mmHg INDICATION Chest Pain RISK FACTORS Height: 5' 4", Weight: 374 DIMENSIONS LVDd 4.8 (3.8-5.7cm) LA (2D) 4.0 (1.9-4.0cm) Aortic Root 3.2 (2.0- 3.7cm) LVDs 3.3 (2.5-4.0cm) LA (MM) (1.9-4.0cm) Aortic Cusp Exc 1.8 (1.5- 2.0cm) EF (%) 60.0 (55-70%) Rt. Atrium 4.0 (1.9-4.0cm) Asc. Aorta cm IVSd 1.1 (0.7-1.1cm) RV (D) (1.8-2.4cm) PWd 1.1 (0.7-1.1cm) Mitral Valve Mitral Mitral Stenosis E wave 1.10m/s MV Mean GR. mmHg A wave 0.90m/s MV Peak GR. mmHg E/A ratio 1.2 2D MVA cm2 Aortic Valve Aortic Valve Aortic Stenosis V1 1.10m/s AO Mean GR. 6mmHg V2 1.80m/s AO Peak GR. 13mmHg LVOT Diameter 2.2 (1.8-2.4cm) Doppler BOUBACAR 2.32cm2 Other Information Quality : Technically Limited Rhythm : Technically limited study due to patient states ribs hurt when touched. Conclusion lvef 60% normal rv function normal atria no severe valve abnormaliteis noted Condition at Discharge: Stable Final Diagnosis/Problems List Musculoskeletal chest pain, likely Displaced right 7th, 8th rib Ruled out ACS Hypertensive urgency, resolving COPD, without exacerbation Morbid obesity Nicotine dependence Discharge Disposition: Home Discharge Instruct/Medications Diet: Cardiac 2g Na,low cholest Activity: No Restrictions, As Tolerated Follow Up/Referral: Please follow up in discharge clinic Please follow up in PCP in 1 week Please follow up in Endocrinilogist in outpatient clinic Medications: As per EHR New Medications: Cephalexin Monohydrate (Cephalexin) 500 Mg Cap 1 CAP PO BID for 5 Days, #20 CAP Scheduled Cephalexin Monohydrate (Cephalexin), 1 CAP PO BID Discharge Statement: "Patient was advised to return to the ER or call 911 if any headaches, dizziness, shortness of breath, chest pain, abdominal pain, bleeding, fevers, or worsening of medical condition. Patient was counseled about treatment plan, medications, possible side effects, patientverbalized understanding. All questions were answered to the best of my ability. This discharge took greater then 30 minutes in planning, reviewing documentation, counseling the patient, and discussing with other team members." ASSESSMENT ASSESSMENT Assessment Musculoskeletal chest pain, likely Displaced right 7th, 8th rib Ruled out ACS Hypertensive urgency, resolving COPD, without exacerbation Morbid obesity Nicotine dependence Date of Service: Dec 23, 2024 Billing Provider: AGUILA IVERSON MD Common Visit Codes: 39694-TJB/OBS DISCH DAY >30min VON RODRIGUEZ RESIDENT Dec 23, 2024 13:38
== END 2024-12-23 13:11 | disposition home or self-care (01) | DRG 199 ==
LOC: ER 09:43 → OVERFLOW 12:25 → TELE-WESTW 16:11
PROVIDERS: ADMIT Internal Medicine Geriatric Medicine; ATTEND Internal Medicine Geriatric Medicine
DX: I16.0 Hypertensive urgency (principal); S22.41XA Multiple fractures of ribs, right side, initial encounter for closed fracture; Z68.44 Body mass index [BMI] 60.0-69.9, adult; R07.89 Other chest pain; E66.01 Morbid (severe) obesity due to excess calories; I10 Essential (primary) hypertension; Z20.822 Contact with and (suspected) exposure to COVID-19; F17.210 Nicotine dependence, cigarettes, uncomplicated; J44.89 Other specified chronic obstructive pulmonary disease; Z90.49 Acquired absence of other specified parts of digestive tract
CPT/HCPCS: 36415; 71046; 71111; 80048; 80053; 80061; 80307; 81001; 81025; 83690; 83735; 84100; 84443; 84484; 85025; 85379; 86141; 87426; 87804; 93005; 93306; G0378